=== PATIENT | male | born 1980 | race African-American/Black ===

== ENCOUNTER → 2018-12-01 | Outpatient (CLI) | payer OTHER ==
[2018-12-01 08:41] LABS: MCH 27.1 pg (26.0-34.0); MCHC 33.3 g/dL (28.0-37.0); MCV 81.4 fL (80.0-100.0); MPV 8.6 fl. (7.2-11.1); RBC 5.16 mil/uL (4.50-6.00); RDW-CV 13.8 % (10.5-14.5); WBC 5.2 thou/uL (4.0-11.0)
[2018-12-01 08:47] LABS: AMP/METHAMP Negative (Negative); BARBITURATES Negative (Negative); BENZODIAZEPINES Negative (Negative); COCAINE Negative (Negative); METHADONE Negative (Negative); OPIATES Negative (Negative); PCP Negative (Negative); THC Negative (Negative)
[2018-12-01 08:56] LABS: ALBUMIN 3.9 g/dL (3.4-5.0); ALKALINE PHOSPHATASE 76 U/L (46-116); ANION GAP 10 mmol/L (7-16); BUN 11 mg/dL (7-18); CALCIUM 8.6 mg/dL (8.5-10.1); CHLORIDE 104 mmol/L (98-107); CHOLESTEROL 270 mg/dL (<200); CO2 27 mmol/L (21-32); CREATININE 1.2 mg/dL (0.6-1.3); GLUCOSE 119 mg/dL (70-99); HDL CHOLESTEROL 31 mg/dL (>40); LDL CHOLESTEROL 197 mg/dL (<100); POTASSIUM 3.7 mmol/L (3.5-5.1); SGOT 18 U/L (15-37); SGPT 36 U/L (30-65); SODIUM 141 mmol/L (136-145); TC:HDL 8.7 Ratio (Not establshd); TOTAL BILIRUBIN 0.3 mg/dL (<0.1-1.0); TOTAL PROTEIN 7.9 g/dL (6.4-8.2); TRIGLYCERIDE 214 mg/dL (<150); VLDL 43 mg/dL (<40)
[2018-12-01 08:58] LABS: SERUM ASSESSMENT Clear
== END ==
LOC: M.LAB 11-11 07:00 → M.CT 11-11 08:30 → M.LAB 08:16
PROVIDERS: Psychiatry & Neurology Psychiatry
DX: F33.2 Major depressive disorder, recurrent severe without psychotic features (principal); R93.0 Abnormal findings on diagnostic imaging of skull and head, not elsewhere classified